=== PATIENT | male | born 1955 | race African-American/Black ===

== ENCOUNTER 2019-03-22 12:12 | Emergency (ER) | payer MEDICAID, OTHER ==
[~2019-03-22] VITALS: Ht 177.8 cm; Wt 90.0 kg
[2019-03-22 12:15] VITALS: BP 145/88
[2019-03-22] MEDS ORDERED: ACETAMINOPHEN 325MG TABLET PO ONE (14:00)
== END 2019-03-22 14:07 | disposition home or self-care (01) ==
LOC: ER 12:12
DX: M79.662 Pain in left lower leg (principal); I10 Essential (primary) hypertension
CPT/HCPCS: 73590; 99283